=== PATIENT | male | born 1990 | race Caucasian/White ===

== ENCOUNTER → 2017-10-27 16:36 | Outpatient (CLI) | payer BC, MEDICARE, SELFPAY ==
[2017-10-27 17:00] LABS: Basophils # 0.1 K/mm3 (0-0.2); Basophils % 0.6 % (0.1-2.0); Eosinophils # 0.6 K/mm3 (0.0-0.4); Hemoglobin 16.9 g/dL (14.1-18.0); Lymphocytes # 2.7 K/mm3 (0.7-4.5); Lymphocytes % 28.3 K/mm3 (10-50); Mean Corpuscular HGB Conc 31.3 g/dL (31.8-35.4); Mean Corpuscular Hemoglobin 28.6 pg (27.0-31.2); Mean Corpuscular Volume 91.4 fl (80-94); Mean Platelet Volume 7.9 fl (7.4-10.4); Monocytes # 0.5 K/mm3 (0.1-1.0); Monocytes % 5.6 % (1.7-9.3); Neutrophils # 5.7 K/mm3 (1.8-7.8); Neutrophils % 59.5 % (37.0-80.0); Platelet Count 213 K/mm3 (142-424); Red Blood Count 5.91 M/mm3 (4.60-6.20); Red Cell Distribution Width 12.7 % (11.5-17.5); White Blood Count 9.6 K/mm3 (4.8-10.8)
== END ==
PROVIDERS: Visit Provider Otolaryngology
DX: Z01.818 Encounter for other preprocedural examination (principal); H91.93 Unspecified hearing loss, bilateral; H65.05 Acute serous otitis media, recurrent, left ear; H61.21 Impacted cerumen, right ear; H65.21 Chronic serous otitis media, right ear
CPT/HCPCS: 36415; 85025; 93005

== ENCOUNTER 2018-07-14 08:51 | Outpatient (RCR) | payer BC, MEDICARE, SELFPAY ==
--- NOTE | 2018-07-14 11:47 | HMH.PTOPEV ---
PT Outpatient Evaluation Rehab PT Outpatient Evaluation Start: 07/14/18 10:15 Freq: Status: Active Protocol: Document 07/14/18 10:15 MITCHELLX (Rec: 07/14/18 11:46 PDESEROUX [id number]) Electronically Signed By Santiago Rod, KEHINDE 07/14/18 10:15 Outpatient Therapy Subjective History Subjective History Pt. is a 27 year old male who presents to outpatient PT with complaints of L anterior knee pain and patella dislocations. Pt. reports he first dislocated his patella in 2012 while stepping up onto his bike. Pt. reports his most recent dislocation was at work a week and a half ago while he was walking. Pt. reports this has happened 2-3 times before with just walking. Pt. states his job gave him a knee brace to wear which has helped, but keeps sliding inferiorly beacuse it is too big. PMH includes L ankle surgical reconstruction. Pt. denies taking any current medications . Chief Complaint Pain Other Symptom Type Ache Symptoms Relieved By Rest/Positioning Brace/Support Symptoms Aggravated By Physical Activity Twisting Walking Prior Functional Limitations None Current Functional Limitations Lifting Squatting Recreation Activity Walking Stairs Symptom Description Intermittent Activity Dependent Level of pain today (0-10) 1 Pain scale - at its best (0-10) 0 Pain scale - at its worst (0-10) 3 Hip/Knee Eval Gait Observation General Gait Pattern Observation No Deviations/Normal Assistive Device Assistive Devices None / NA Palpation Tenderness left Knee Palpation Finding Tenderness Knee Palpation Overall Comment medial and posterior/medial jt . line grade 2 +TTP Hip Palpation Findings None/Normal right Knee Palpation Finding None/Normal Hip Palpation Findings None/Normal MMT bilateral Hip Flexion Streng
== END 2018-08-11 09:58 | disposition home or self-care (01) ==
LOC: PT.CARL 08:51
PROVIDERS: Visit Provider Internal Medicine Adolescent Medicine
DX: S83.005D Unspecified dislocation of left patella, subsequent encounter (principal)
CPT/HCPCS: 97110; 97163

== ENCOUNTER 2020-03-17 12:26 | Emergency (ER) | payer BC, SELFPAY ==
[2020-03-17 12:39] VITALS: BP 143/114; PULSE 95; RESP 18; TEMP 36.7; O2SAT 98; BMI 33.0
--- NOTE | 2020-03-17 12:47 | XR_ITS ---
PROCEDURE: XR ANKLE LT 2V CLINICAL INDICATION: pain COMPARISON: CR ANKL3 ANKLE-LT-3 VIEWS from 03/30/2016 FINDINGS: The surgical metallic clips are again seen projecting over the distal fibula and tibia. Minor posttraumatic deformity of the distal fibula is noted however the ankle mortise is normal. There is minor focal ossification of the intraosseous ligament at the level of the old fracture. IMPRESSION: No acute findings. Dictated by: Dr. Tommie Anderson MD 03/17/2020 14:01 Dr. Tommie Anderson MD in [place] 03/17/2020 14:01
--- NOTE | 2020-03-17 12:47 | XR_ITS ---
PROCEDURE: XR FOOT LT MIN 3V CLINICAL INDICATION: pain COMPARISON: CR XR ANKLE LT 2V from 03/17/2020 FINDINGS: No fracture or dislocation. No lytic or blastic change. There is normal mineralization. The joint spaces are well-preserved. No significant degenerative/arthritic changes. No erosive changes evident. There is no evidence of acute or old fracture involving the 5th metatarsal. Plantar arch is normal. There is a prominent spur of the calcaneus at the insertion of the Achilles tendon. Other findings:Surgical clips are seen projecting over the distal tibia and fibula. IMPRESSION: No acute findings. Dictated by: Dr. Tommie Anderson MD 03/17/2020 13:58 Dr. Tommie Anderson MD in [place] 03/17/2020 13:58
--- NOTE | 2020-03-17 13:13 | HMH.EDUTC ---
[facility] [place]ression: Right ankle pain Qualifiers: Chronicity: unspecified Qualified Code(s): M25.571 - Pain in right ankle and joints of right foot Disposition: Home, Self-Care Condition on Discharge: Good Instructions: DI for Foot Pain Additional Instructions: Rest the extremity, apply ice for 15 minutes as tolerated three or four times per day, Wear the estrella wrap for compression, Elevate the extremity as tolerated while you are resting. Follow up with Dr. Adamson. I put in a referral but you need to call her office and schedule an appointment. Follow up with your regular doctor. Don't start the oral steroids until tomorrow, since you had the shot here today. GO TO THE ER FOR ANY WORSENING SYMPTOMS Prescriptions: methylPREDNISolone [Medrol] 4 mg PO DIRECTED 6 Days #21 tab.ds.pk Transmission Status: Received by [facility] Referrals: Jhonny Turner MD [Primary Care Provider] - Clari Adamson DPM [Staff Physician] - Forms: Work/School Release Time of Disposition: 13:21 Medical Decision Making - Medical Records Medical records reviewed: No: I reviewed the patient's medical records. - Fredi Inquiry Pt receiving controlled substance: No Vital Signs: 03/17/20 12:39 03/17/20 13:29 Temperature 98.1 F 98.1 F Temperature Source Oral Oral Pulse Rate 95 H Pulse Rate [Radial] 95 H Respiratory Rate 18 18 Blood Pressure 143/114 H Blood Pressure [Right Arm] 143/114 H Blood Pressure Mean [Right Arm] 123 Blood Pressure Source Automatic Cuff Blood Pressure Source [Right Arm] Automatic Cuff Blood Pressure Position Sitting Blood Pressure Position [Right Arm] Sitting 02 Sat by Pulse Oximetry 98 Oxygen Delivery Method Room Air Room Air Orders (Tests/Meds): ED MEDICATIONS Discontinued Medications Generic Name Dose Route Start Last Admin Trade Name Freq PRN Reason Stop Dose Admin Ketorolac Tromethamine 60 mg 03/17/20 13:10 03/17/20 13:18 Ketorolac 60mg/2ml Vial IM 03/17/20 13:11 60 mg ONCE ONE Administration Methylprednisolone Sodium Succinate 125 mg 03/17/20 13:10 03/17/20 13:17 Methylprednisolone Sod Succ 125mg Vial IM 03/17/20 13:11 125 mg ONCE ONE Administration - Radiology Data #1 Image(s): Ankle Image Reviewed: Yes I reviewed the patient's radiology image, Yes I have reviewed radiologist's interpretation Preliminary Findings: No Fracture Seen [facility] [place] - General Stated complaint: lt foot pain no ao Time Seen by Provider: 03/17/20 12:45 Mode of Arrival: Ambulatory Source of Information: Patient Limitations: No Limitations Description of Symptoms (Recalled from Triage Doc. by RN): left foot pain, no injury HEENT Symptoms (Recalled from RN notes): No Resp Symptoms (Recalled from RN notes): No Skin Symptoms (Recalled from RN notes): No MS Symptoms (Recalled from RN notes): Yes Functional Status (Recalled from RN notes): wnl - History of Present Illness Provider Complaint: He complains of left foot and ankle pain. His pain began several days ago. He denies any injury. He states that he has flare ups like this ever so often. He has to walk and stand a lot on his foot at his work. - Related Data Previous Rx's Medication Instructions Recorded methylPREDNISolone [Medrol] 4 mg PO DIRECTED 6 Days #21 03/17/20 tab.ds.pk Allergies Allergy/AdvReac Type Severity Reaction Status Date / Time ampicillin [AMPICILLIN] Allergy Unknown I-HIVES Verified 11/10/17 08:20 Penicillins [PENICILLINS] Allergy Unknown I-HIVES Verified 11/10/17 08:20 poliomyelitis vaccine,killed Allergy Unknown INCREASED Verified 11/10/17 08:20 [POLIOMYELITIS FEVER LED VACCINE,KILLED] TO SEIZURES - Worker's Comp Is this a Worker's Comp case?: No [facility] History - Hepatitis A Screen Drug use history?: No High risk sexual behaviors?: No History of sexually transmitted infection?: No 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
[2020-03-17 13:29] VITALS: BP 143/114; PULSE 95; RESP 18; TEMP 36.7; O2SAT 98
== END 2020-03-17 13:37 | disposition home or self-care (01) ==
PROVIDERS: Emergency Provider Nurse Practitioner Family; PCP Internal Medicine Adolescent Medicine
DX: M25.571 Pain in right ankle and joints of right foot (principal); Z88.0 Allergy status to penicillin
CPT/HCPCS: 73600; 73630; 96372; 99202

== ENCOUNTER 2021-02-03 12:44 | Emergency (ER) | payer BC, SELFPAY ==
[2021-02-03 14:05] VITALS: BP 140/91; PULSE 89; RESP 18; TEMP 36.6; O2SAT 99; BMI 31.6
[2021-02-03 14:13] VITALS: BP 140/91; PULSE 89; RESP 18; TEMP 36.6
[2021-02-03 14:21] LABS: UTC Strep Screen (Rapid) Negative (Negative)
--- NOTE | 2021-02-03 14:28 | HMH.EDUTC ---
[facility] [place] Clinical Impression: Sinusitis, Exposure to COVID-19 virus Disposition: Home, Self-Care Condition on Discharge: Good Instructions: DI for Sinusitis, DI for COVID-19 (Suspected or Confirmed ), Preventing the Spread of Coronavirus Discharge Instructions Additional Instructions: Drink plenty of fluids. Take tylenol or ibuprofen for pain or fever. Take the medications as directed. Follow up with your regular doctor. GO TO THE ER FOR ANY WORSENING SYMPTOMS Quarantine until you know the results of your covid-19 test. If it is positive, the health department should call you and give you further instructions about your length of Quarantine and other things. Notify your school or workplace of your results and follow their instructions regarding return to work/school. Prescriptions: Benzonatate [Tessalon Perle 100mg Cap] 100 mg PO TIDP PRN #30 cap PRN Reason: Cough Transmission Status: Received by [facility] Azithromycin [Z-Vu 250mg Tab*] 250 mg PO UD DOSE PK #6 tab Transmission Status: Received by [facility] Referrals: Jhonny Turner MD [Primary Care Provider] - Forms: Work/School Release Time of Disposition: 14:38 Medical Decision Making - Medical Records Medical records reviewed: No: I reviewed the patient's medical records. - Fredi Inquiry Pt receiving controlled substance: No Vital Signs: 02/03/21 14:05 02/03/21 14:13 Temperature 97.9 F 97.9 F Temperature Source Oral Pulse Rate 89 Pulse Rate [Left] 89 Respiratory Rate 18 18 Blood Pressure 140/91 H Blood Pressure [Right Arm] 140/91 H Blood Pressure Mean [Right Arm] 107 02 Sat by Pulse Oximetry 99 - Lab Data Lab results reviewed: Yes: I reviewed the patient's lab results. Lab Results 02/03/21 14:14: Strep Scn Rapid Clinic Negative Orders (Tests/Meds): ORDERS Category Date Time Status Strep Screen Confirmation Stat Micro 02/03/21 14:14 [place] [facility] [place] - General Stated complaint: sore throat, sinus congestion Time Seen by Provider: 02/03/21 14:28 Mode of Arrival: Ambulatory Source of Information: Patient Limitations: No Limitations Description of Symptoms (Recalled from Triage Doc. by RN): pt c/o sore throat, sinus pressure, and WALSH x3 days. HEENT Symptoms (Recalled from RN notes): Yes (sore throat, sinus pressure and WALSH) Resp Symptoms (Recalled from RN notes): No Skin Symptoms (Recalled from RN notes): No MS Symptoms (Recalled from RN notes): No Functional Status (Recalled from RN notes): na - History of Present Illness Provider Complaint: He states that for the past 2 days he has had sinus congestion and a cough. He has been vaccinated to covid with a 2 shot regimen. He is unsure which vaccine he took. He denies any fever or chills. - Related Data Previous Rx's Medication Instructions Recorded methylPREDNISolone [Medrol] 4 mg PO DIRECTED 6 Days #21 03/17/20 tab.ds.pk Azithromycin [Z-Vu 250mg Tab*] 250 mg PO UD DOSE PK #6 tab 02/03/21 Benzonatate [Tessalon Perle 100mg 100 mg PO TIDP PRN #30 cap 02/03/21 Cap] Allergies Allergy/AdvReac Type Severity Reaction Status Date / Time ampicillin [AMPICILLIN] Allergy Unknown I-HIVES Verified 11/10/17 08:20 Penicillins [PENICILLINS] Allergy Unknown I-HIVES Verified 11/10/17 08:20 poliomyelitis vaccine,killed Allergy Unknown INCREASED Verified 11/10/17 08:20 [POLIOMYELITIS FEVER LED VACCINE,KILLED] TO SEIZURES - Worker's Comp Is this a Worker's Comp case?: No [facility] History - Hepatitis A Screen Drug use history?: No High risk sexual behaviors?: No History of sexually transmitted infection?: No 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r?: No Do you have indoor plumbing?: Yes Do you have electricity?: Yes Attestation statement:: This patient has been screened for Hepatitis A risk factors. I have reviewed the patient's past medical history: Yes Medical History: Denies:: Cancer,
== END 2021-02-03 14:42 | disposition home or self-care (01) ==
PROVIDERS: Emergency Provider Nurse Practitioner Family; PCP Internal Medicine Adolescent Medicine
DX: J01.90 Acute sinusitis, unspecified (principal); Z20.822 Contact with and (suspected) exposure to COVID-19; Z88.0 Allergy status to penicillin; Z88.1 Allergy status to other antibiotic agents
CPT/HCPCS: 87880; 99203; G0463; U0003

== ENCOUNTER 2021-11-11 11:40 | Emergency (ER) | payer BC, SELFPAY ==
[2021-11-11 12:00] VITALS: BP 147/76; PULSE 110; RESP 18; TEMP 36.9; O2SAT 96; BMI 35.6
--- NOTE | 2021-11-11 12:19 | HMH.EDUTC ---
[facility] [place]position Clinical Impression: Exposure to COVID-19 virus, Viral syndrome Disposition: Home, Self-Care Condition on Discharge: Good Instructions: DI for Viral Syndrome, DI for COVID-19 (Suspected or Confirmed ), Preventing the Spread of Coronavirus Discharge Instructions Additional Instructions: *Monitor Temp, Over the counter Motrin or Tylenol as directed/as needed Tylenol every 4 hours and Motrin every 6 hours (as long as your family doctor has told you that you can take it) for fever or pain. and straight to ER if unable to lower temp less than 101.0 after medication given *Warm salt water gargles may help to soothe the throat *Throat Lozenges *Warm fluids like tea with honey may help to soothe the throat *Sleep elevated *Humidifier/Vaporizer Follow up IMMEDIATELY for new or worsening symptoms or no Noticeable improvement over the next 48-72 hours. 911 for difficulty breathing or swallowing You were tested for today for COVID19 your test result should be back in the next 24-48 hours, you may check your results on the [facility] My Health Portal Make sure to take your Vitamins Vit. C Vit D and Zinc if you can take them Prescriptions: Brompheniramine/Pseudoephed/Dm [Bromfed Dm Cough Syrup] 10 ml PO Q4-6H PRN #200 ml PRN Reason: Cough Transmission Status: Pending to [facility] Referrals: Jhonny Turner MD [Primary Care Provider] - As needed Forms: Work/School Release Time of Disposition: 12:23 Medical Decision Making - Fredi Inquiry Pt receiving controlled substance: No Fredi was queried for this patient: No Vital Signs: 11/11/21 12:00 Temperature 98.4 F Temperature Source Oral Pulse Rate [Left Brachial] 110 H Respiratory Rate 18 Blood Pressure [Left Arm] 147/76 H Blood Pressure Mean [Left Arm] 99 Blood Pressure Source [Left Arm] Automatic Cuff Blood Pressure Position [Left Arm] Sitting 02 Sat by Pulse Oximetry 96 Oxygen Delivery Method Room Air Orders (Tests/Meds): ORDERS Category Date Time Status Covid-19 Nasal PCR ([facility]) Routine Lab 11/11/21 11:55 Received [facility] [place] HPI - General Stated complaint: sore throat, bodyaches, chills Time Seen by Provider: 11/11/21 12:20 Mode of Arrival: Ambulatory Source of Information: Patient Limitations: No Limitations Description of Symptoms (Recalled from Triage Doc. by RN): PATIENT C/O SORE THROAT AND DECREASED ENERGY SINCE TUESDAY. HE REPORTS HIS CHILD AND TESTED POSITIVE FOR COVID ON TUESDAY HEENT Symptoms (Recalled from RN notes): Yes Resp Symptoms (Recalled from RN notes): No Skin Symptoms (Recalled from RN notes): No MS Symptoms (Recalled from RN notes): No Functional Status (Recalled from RN notes): WNL - History of Present Illness Provider Complaint: Patient states that his and daughter tested positive for COVID on Tuesday States that he has been feeling bad since Tuesday and took several at home COVID tests and they was negative but this morning it showed positive so he came in to get tested here - Related Data Previous Rx's Medication Instructions Recorded methylPREDNISolone [Medrol] 4 mg PO DIRECTED 6 Days #21 03/17/20 tab.ds.pk Azithromycin [Z-Vu 250mg Tab*] 250 mg PO UD DOSE PK #6 tab 02/03/21 Benzonatate [Tessalon Perle 100mg 100 mg PO TIDP PRN #30 cap 02/03/21 Cap] Brompheniramine/Pseudoephed/Dm 10 ml PO Q4-6H PRN #200 ml 11/11/21 [Bromfed Dm Cough Syrup] Allergies Allergy/AdvReac Type Severity Reaction Status Date / Time ampicillin [AMPICILLIN] Allergy Unknown I-HIVES Verified 11/10/17 08:20 Penicillins [PENICILLINS] Allergy Unknown I-HIVES Verified 11/10/17 08:20 poliomyelitis vaccine,killed Allergy Unknown INCREASED Verified 11/10/17 08:20 [POLIOMYELITIS FEVER LED VACCINE,KILLED] TO SEIZURES - Worker's Comp Is this a Worker's Comp case?: No H History - Hepatitis A Screen Attestation statement:: This patient has been screened for Hepatitis A risk factors. I
[2021-11-11 12:22] VITALS: BP 147/76; PULSE 110; RESP 18; TEMP 36.9; O2SAT 96
== END 2021-11-11 12:25 | disposition home or self-care (01) ==
PROVIDERS: Emergency Provider Nurse Practitioner; PCP Internal Medicine Adolescent Medicine
DX: U07.1 COVID-19 (principal)
CPT/HCPCS: 99212; C9803; G0463; U0003; U0005

== ENCOUNTER 2022-03-01 09:37 | Emergency (ER) | payer BC, SELFPAY ==
--- NOTE | 2022-03-01 10:27 | EXP.UTC ---
Discharge Plan Disposition Patient Disposition: Home, Self-Care Condition: Good Prescriptions Prescriptions: New methylprednisolone 4 mg Tablets,Dose Pack 4 mg PO DIRECTED Qty: 21 0RF No Action methylprednisolone 4 MG tablets,dose pack 4 mg PO DIRECTED 6 Days Qty: 21 0RF azithromycin 250 MG tablet 250 mg PO UD DOSE PK Qty: 6 0RF Rx Instructions: Take two (2) tablets today, then one (1) tablet days #2 thru #5 benzonatate 100 MG capsule 100 mg PO TIDP PRN (Reason: Cough) Qty: 30 0RF [id number]-[id number] 118 ML syrup 10 ml PO Q4-6H PRN (Reason: Cough) Qty: 200 0RF Referrals Follow up/Referrals: Jhonny Turner MD [Primary Care Provider] - See instructions Activity Restrictions/Add. Instructions Additional Instructions/Restrictions: Rest the extremity, apply ice for 15 minutes as tolerated three or four times per day, Wear the estrella wrap for compression, Elevate the extremity as tolerated while you are resting. Take ibuprofen for pain. I sent in a prescription to your pharmacy. Follow up with Dr. Adamson (orthopedics). I put in a referral but you need to call her office and schedule an appointment. Follow up with your regular doctor. GO TO THE ER FOR ANY WORSENING SYMPTOMS Clinical Impressions Clinical Impression: Right ankle pain Stand Alone Forms Stand Alone Forms: Work/School Release Instructions Patient Instructions: DI for Ankle Pain, Methylprednisolone Injection, Ketorolac Injection Discharge ED Provider: Phil Hall [facility] General Stated complaint: pain in Rt ankle Time Seen by Provider: 03/01/22 10:26 History of Present Illness Provider Complaint: He is here with c/o right ankle pain. He states that he had an injury in the ankle about 5 years ago. Since then, he has flare ups of arthritis pain in the ankle at times. That is what he says is going on now. This episode of pain started 3 days ago. He denies any other joint pain. Related Data Previous Rx's Medication Instructions Recorded methylprednisolone 4 mg tablets in 4 mg PO DIRECTED 6 days ##21 03/17/20 a dose pack azithromycin 250 mg tablet 250 mg PO UD DOSE PK #6 tabs 02/03/21 benzonatate 100 mg capsule 100 mg PO TIDP PRN Cough #30 caps 02/03/21 [id number]-VP 10 ml PO Q4-6H PRN Cough #200 mL 11/11/21 2 mg-30 mg-10 mg/5 mL oral syrup methylprednisolone 4 mg tablets in 4 mg PO DIRECTED #21 tabs 03/01/22 a dose pack Allergies Allergy/AdvReac Type Severity Reaction Status Date / Time ampicillin [AMPICILLIN] Allergy Unknown I-HIVES Verified 11/10/17 08:20 Penicillins [PENICILLINS] Allergy Unknown I-HIVES Verified 11/10/17 08:20 poliomyelitis vaccine,killed Allergy Unknown INCREASED Verified 11/10/17 08:20 [POLIOMYELITIS FEVER LED VACCINE,KILLED] TO SEIZURES [facility] Medical History Seizure disorder Surgical History History of ankle surgery Hx of tympanostomy tubes Social History Smoking Status: Never smoker alcohol intake: never substance use type: denies use current occupational status: employed Travel in the last 8 weeks: None household members: spouse housing: house current occupation: [employer] caffeine: Yes ROS Obtained: Yes All systems reviewed & no additional complaints except as documented Constitutional Constitutional: Denies chills and Denies fever(s) Integumentary/Breasts Skin/Breast: Denies redness, Denies rash and Denies wounds Neurologic Neurologic: Denies paresthesias Physical Exam General General appearance: alert and in no apparent distress Head Head exam: atraumatic, normocephalic and normal inspection Eye Eye exam: Present normal appearance, PERRL and EOMI ENT ENT exam: Present normal exam, normal oropharynx, mucous membr
[2022-03-01 10:30] VITALS: BP 158/88; PULSE 73; RESP 18; TEMP 37.2; O2SAT 99; BMI 30.3
[2022-03-01 11:00] VITALS: BP 158/88; PULSE 73; RESP 18; TEMP 37.2; O2SAT 99
== END 2022-03-01 11:04 | disposition home or self-care (01) ==
PROVIDERS: Emergency Provider Nurse Practitioner Family; PCP Internal Medicine Adolescent Medicine
DX: M19.071 Primary osteoarthritis, right ankle and foot (principal); R05.9 Cough, unspecified; G40.909 Epilepsy, unspecified, not intractable, without status epilepticus; Z79.52 Long term (current) use of systemic steroids; Z79.899 Other long term (current) drug therapy; Z88.0 Allergy status to penicillin; Z88.1 Allergy status to other antibiotic agents; Z88.3 Allergy status to other anti-infective agents; Z88.7 Allergy status to serum and vaccine
CPT/HCPCS: 96372; 99213; G0463

== ENCOUNTER 2022-04-18 08:59 | Emergency (ER) | payer BC, SELFPAY ==
--- NOTE | 2022-04-18 10:05 | EXP.UTC ---
Discharge Plan Disposition Patient Disposition: Home, Self-Care Condition: Good Prescriptions Prescriptions: New prednisone 10 mg tablet 10 mg PO DIRECTED 9 Days Qty: 21 0RF Rx Instructions: Take 4 tablets daily for 3 days, then take 2 tablets daily for 3 days, then take 1 tablet daily for 3 days, then stop. Discontinued methylprednisolone 4 MG tablets,dose pack 4 mg PO DIRECTED 6 Days Qty: 21 0RF azithromycin 250 MG tablet 250 mg PO UD DOSE PK Qty: 6 0RF Rx Instructions: Take two (2) tablets today, then one (1) tablet days #2 thru #5 benzonatate 100 MG capsule 100 mg PO TIDP PRN (Reason: Cough) Qty: 30 0RF methylprednisolone 4 mg Tablets,Dose Pack 4 mg PO DIRECTED Qty: 21 0RF ozpbpsdjatycsdj-ruuendxtl-DA 118 ML syrup 10 ml PO Q4-6H PRN (Reason: Cough) Qty: 200 0RF Referrals Follow up/Referrals: Jhonny Turner MD [Primary Care Provider] - See instructions Activity Restrictions/Add. Instructions Additional Instructions/Restrictions: Rest the extremity, Elevate the extremity as tolerated while you are resting. Follow up with Dr. Adamson (podiatry) or your own orthopedist. I put in a referral to Dr. Adamson, but you need to call her office and schedule an appointment. Follow up with your regular doctor. GO TO THE ER FOR ANY WORSENING SYMPTOMS Clinical Impressions Clinical Impression: Ankle pain, left Discharge ED Provider: Phil Hall [facility] General Stated complaint: Surgery 10 years ago, left ankle pain Time Seen by Provider: 04/18/22 10:05 History of Present Illness Provider Complaint: He c/o worsening left ankle pain for the past 2 days. He denies any recent injury. When he was young he hurt the ankle and had to have surgery on it. Since then, he has periodic flare ups of pain in the ankle that is attributed to arthritis. Related Data Previous Rx's Medication Instructions Recorded prednisone 10 mg tablet 10 mg PO DIRECTED 9 days #21 04/18/22 tabs Allergies Allergy/AdvReac Type Severity Reaction Status Date / Time ampicillin [AMPICILLIN] Allergy Unknown I-HIVES Verified 04/18/22 10:18 Penicillins [PENICILLINS] Allergy Unknown I-HIVES Verified 04/18/22 10:18 poliomyelitis vaccine,killed Allergy Unknown INCREASED Verified 04/18/22 10:18 [POLIOMYELITIS FEVER LED VACCINE,KILLED] TO SEIZURES [facility] Medical History Seizure disorder Surgical History History of ankle surgery Hx of tympanostomy tubes Social History Smoking Status: Never smoker alcohol intake: never substance use type: denies use current occupational status: employed Travel in the last 8 weeks: None household members: spouse housing: house current occupation: [employer] caffeine: Yes ROS Obtained: Yes All systems reviewed & no additional complaints except as documented Constitutional Constitutional: Denies chills and Denies fever(s) Integumentary/Breasts Skin/Breast: Denies redness, Denies rash and Denies wounds Neurologic Neurologic: Denies paresthesias Physical Exam General General appearance: alert and in no apparent distress Head Head exam: atraumatic, normocephalic and normal inspection Eye Eye exam: Present normal appearance, PERRL and EOMI ENT ENT exam: Present normal exam, normal oropharynx, mucous membranes moist, TM's normal bilaterally and normal external ear exam Neck Neck exam: Present normal inspection, full ROM and trachea midline; Absent meningismus or lymphadenopathy Chest Chest inspection: Present normal inspection and symmetric chest wall rise; Absent tenderness Respiratory Respiratory exam: Present normal lung sounds bilaterally; Absent respiratory distress Cardiovascular Cardiovascular exam: Present regular rate and normal rhythm; A
[2022-04-18 10:14] VITALS: BP 146/96; PULSE 83; RESP 17; TEMP 36.9; O2SAT 100; BMI 31.6
[2022-04-18 11:06] VITALS: BP 146/96; PULSE 83; RESP 17; TEMP 36.9
== END 2022-04-18 11:09 | disposition home or self-care (01) ==
PROVIDERS: Emergency Provider Nurse Practitioner Family; PCP Internal Medicine Adolescent Medicine
DX: M25.572 Pain in left ankle and joints of left foot (principal); G40.909 Epilepsy, unspecified, not intractable, without status epilepticus; R05.9 Cough, unspecified; Z79.52 Long term (current) use of systemic steroids; Z88.0 Allergy status to penicillin; Z88.1 Allergy status to other antibiotic agents; Z88.3 Allergy status to other anti-infective agents; Z88.8 Allergy status to other drugs, medicaments and biological substances
CPT/HCPCS: 96372; 99213; G0463

== ENCOUNTER 2022-09-23 15:50 | Emergency (ER) | payer BC, SELFPAY ==
[2022-09-23 16:15] VITALS: PULSE 118; RESP 18; TEMP 36.8; O2SAT 96; BMI 33.0
--- NOTE | 2022-09-23 16:39 | EXP.UTC ---
Discharge Plan Disposition Patient Disposition: Home, Self-Care Condition: Good Prescriptions Prescriptions: New methylprednisolone 4 mg Tablets,Dose Pack 4 mg PO DIRECTED Qty: 21 0RF Referrals Follow up/Referrals: Provider,Referral, [Primary Care Provider] - See instructions Clari Adamson DPM [Staff Physician] - See instructions Activity Restrictions/Add. Instructions Additional Instructions/Restrictions: Rest the extremity, Elevate the extremity as tolerated while you are resting. Follow up with Dr. Adamson (podiatry). I put in a referral but you need to call her office and schedule an appointment. Follow up with your regular doctor. GO TO THE ER FOR ANY WORSENING SYMPTOMS Clinical Impressions Clinical Impression: Left foot pain Instructions Patient Instructions: Gout, DI for Gout Discharge ED Provider: Phil Hall [facility] [place] General Stated complaint: left ankle swollen&Pain Mode of Arrival: Ambulatory Source of Information: Patient Limitations: No Limitations Time Seen by Provider: 09/23/22 16:30 Description of Symptoms (Recalled from Triage Doc. by RN): Left ankle pain HEENT Symptoms (Recalled from RN notes): No Resp Symptoms (Recalled from RN notes): No Skin Symptoms (Recalled from RN notes): No MS Symptoms (Recalled from RN notes): Yes Functional Status (Recalled from RN notes): n/a History of Present Illness Provider Complaint: He states that he is having a gout flare up in his left foot. Related Data Previous Rx's Medication Instructions Recorded methylprednisolone 4 mg tablets in 4 mg PO DIRECTED #21 tabs 09/23/22 a dose pack Allergies Allergy/AdvReac Type Severity Reaction Status Date / Time ampicillin [AMPICILLIN] Allergy Unknown I-HIVES Verified 09/23/22 16:30 Penicillins [PENICILLINS] Allergy Unknown I-HIVES Verified 09/23/22 16:30 poliomyelitis vaccine,killed Allergy Unknown INCREASED Verified 09/23/22 16:30 [POLIOMYELITIS FEVER LED VACCINE,KILLED] TO SEIZURES Worker's Comp Is this a Worker's Comp case?: No [facility] Disclaimer: The information contained in this section may have been updated after the patient was seen, as this information can be updated by other users. Medical History Seizure disorder Surgical History History of ankle surgery Hx of tympanostomy tubes Social History Smoking Status: Never smoker alcohol intake: never substance use type: denies use current occupational status: employed Travel in the last 8 weeks: None household members: spouse housing: house current occupation: [employer] caffeine: Yes ROS Obtained: Yes All systems reviewed & no additional complaints except as documented Constitutional Constitutional: Denies chills and Denies fever(s) Eyes Eyes: Denies eye discharge ENT Ears, Nose, Mouth, and Throat: Denies dizziness, Denies otalgia and Denies sore throat Cardiovascular Cardiovascular: Denies chest pain Respiratory Respiratory: Denies shortness of breath, Denies chest congestion, Denies cough, Denies stridor and Denies wheezing Gastrointestinal Gastrointestingal: Denies nausea or vomiting Musculoskeletal Musculoskeletal: Reports system reviewed and no additional complaints, except as documented and Denies arthralgias Integumentary/Breasts Skin/Breast: Denies rash Neurologic Neurologic: Denies dizziness and Denies paresthesias Allergic/Immunologic Allergic/Immunologic: Denies wheezing Physical Exam General General appearance: alert and in no apparent distress Head Head exam: atraumatic, normocephalic and normal inspection Eye Eye exam: Present normal appearance, PERRL and EOMI ENT ENT exam: Present normal exam, normal oropharynx, mucous membranes moist, TM's normal bilaterally and normal external ear exam Neck Neck
[2022-09-23 19:27] VITALS: BP 0/0; PULSE 118; RESP 18; TEMP 36.8; O2SAT 96
== END 2022-09-23 19:26 | disposition home or self-care (01) ==
PROVIDERS: Emergency Provider Nurse Practitioner Family
DX: M79.672 Pain in left foot (principal)
CPT/HCPCS: 96372; 99212; 99214; G0463

== ENCOUNTER 2022-11-07 14:45 | Emergency (ER) | payer BC, SELFPAY ==
[2022-11-07 15:00] VITALS: BP 148/87; PULSE 68; RESP 18; TEMP 36.7; O2SAT 98; BMI 34.0
--- NOTE | 2022-11-07 15:03 | XR_ITS ---
PROCEDURE INFORMATION: Exam: XR Left Ankle Exam date and time: 11/07/2022 3:17 PM Age: 31 years old Clinical indication: Prior surgery; Surgery date: 6+ months; Surgery type: Left ankle FX repair about 6 years ago. Patient HX: Patient twisted left ankle 2 days ago, increasing pain. ; Additional info: Pain and swelling TECHNIQUE: Imaging protocol: Radiologic exam of the left ankle. Views: 3 or more views. COMPARISON: CR XR ANKLE LT 2V 03/17/2020 12:50 PM FINDINGS: Bones/joints: Status post ankle syndesmosis repair with distal tibial and fibular osteotomies and small metallic fixation buttons, unchanged in alignment compared with 03/17/2020. Chronic degenerative spurs of the tips of medial and lateral malleoli and ovoid ossicle at the tip of the medial malleolus. Chronic cortical-periosteal thickening of the distal tibia along the syndesmosis. Prominent Achilles calcaneal spur and some ovoid calcification in the Achilles tendon insertion.No acute fracture or dislocation. Talus remains intact and normally aligned. Small ankle joint effusion. Mild arthritis in the midfoot with navicular spurs. Soft tissues: Lateral soft tissue swelling at the ankle. IMPRESSION: 1. No acute fracture or dislocation. 2. Surgical hardware post ankle syndesmosis repair is unchanged in alignment compared with 03/17/2020. 3. Degenerative changes of medial and lateral malleoli. 4. Small ankle joint effusion and lateral soft tissue swelling, correlate for lateral ligament sprain or contusion. 5. Calcific Achilles tendinopathy and calcaneal spur.
--- NOTE | 2022-11-07 15:31 | EXP.UTC ---
Discharge Plan Disposition Patient Disposition: Home, Self-Care Condition: Good Prescriptions Prescriptions: New ibuprofen 600 mg tablet 600 mg PO Q8H PRN (Reason: pain) Qty: 10 0RF No Action methylprednisolone 4 mg Tablets,Dose Pack 4 mg PO DIRECTED Qty: 21 0RF Referrals Follow up/Referrals: Jhonny Turner MD [Primary Care Provider] - See instructions Activity Restrictions/Add. Instructions Additional Instructions/Restrictions: Weightbearing as tolerated rest Ice with cold pack for 20 minutes remove may repeat for comfort every hour Cruz wrap for support and swelling no less in the shower. Be sure not too tight but not to lose either Elevate with ankle above your heart as much as possible to help reduce swelling and therefore pain Ibuprofen every 6 hours as needed for pain or inflammation. If needs something more you can take Tylenol every 4 hours as needed as long as her primary care has told he was okayed for you to take both. If improving any do not need to follow-up you can bring begin exercising 2-3 weeks after injury. Follow-up immediately if new or worsening symptoms or no noticeable improvement over the next 3-5 days. call ortho Clinical Impressions Clinical Impression: Ankle pain, left Instructions Patient Instructions: DI for Ankle Sprain Discharge ED Provider: Baldo ([facility])Carlos [facility] [place] HPI General Stated complaint: LT ankle pain Fall@home 11/01 Mode of Arrival: Ambulatory Source of Information: Patient Limitations: No Limitations Time Seen by Provider: 11/07/22 15:31 Description of Symptoms (Recalled from Triage Doc. by RN): PATIENT C/O LEFT ANKLE PAIN AND SWELLING X 4-5 DAYS HEENT Symptoms (Recalled from RN notes): No Resp Symptoms (Recalled from RN notes): No Skin Symptoms (Recalled from RN notes): No MS Symptoms (Recalled from RN notes): Yes Functional Status (Recalled from RN notes): WNL History of Present Illness Provider Complaint: 31 yr old male presents for left ankle pain. pt states 4-5 days ago he twisted his ankle and its not getting any better. pt states it hurts when he walks. pt states hx of ankle surgery and sometimes he receives a steroid shot and that helps. Related Data Previous Rx's Medication Instructions Recorded methylprednisolone 4 mg tablets in 4 mg PO DIRECTED #21 tabs 09/23/22 a dose pack ibuprofen 600 mg tablet 600 mg PO Q8H PRN pain #10 tabs 11/07/22 Allergies Allergy/AdvReac Type Severity Reaction Status Date / Time ampicillin [AMPICILLIN] Allergy Unknown I-HIVES Verified 09/23/22 16:30 Penicillins [PENICILLINS] Allergy Unknown I-HIVES Verified 09/23/22 16:30 poliomyelitis vaccine,killed Allergy Unknown INCREASED Verified 09/23/22 16:30 [POLIOMYELITIS FEVER LED VACCINE,KILLED] TO SEIZURES Worker's Comp Is this a Worker's Comp case?: No [facility] Disclaimer: The information contained in this section may have been updated after the patient was seen, as this information can be updated by other users. 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) Smoking Status: Never smoker alcohol intake: never substance use type: denies use current occupational status: employed Travel in the last 8 weeks: None household members: spouse housing: house current occupation: [employer] caffeine: Yes ROS Obtained: Yes All systems reviewed & no additional complaints except as documented Constitutional Constitutional: Reports system reviewed and no additional complaints, except as documented Eyes Eyes: Reports system reviewed and no additional complaints, except as documented ENT Ears, Nose, Mouth, and Throat: Reports system reviewed and no additional complaints, exce
[2022-11-07 16:24] VITALS: BP 148/87; PULSE 68; RESP 18; TEMP 36.7; O2SAT 98
== END 2022-11-07 16:33 | disposition home or self-care (01) ==
PROVIDERS: Emergency Provider Nurse Practitioner Family; PCP Internal Medicine Adolescent Medicine
DX: M25.572 Pain in left ankle and joints of left foot (principal); G40.909 Epilepsy, unspecified, not intractable, without status epilepticus; X50.1XXA Overexertion from prolonged static or awkward postures, initial encounter
CPT/HCPCS: 73610; 96372; 99212; 99214; G0463

== ENCOUNTER 2023-03-07 16:45 | Emergency (ER) | payer BC, SELFPAY ==
[2023-03-07 17:05] VITALS: BP 139/88; PULSE 91; RESP 18; TEMP 36.8; O2SAT 98; BMI 35.3
--- NOTE | 2023-03-07 17:32 | EXP.UTC ---
Discharge Plan Disposition Patient Disposition: Home, Self-Care Condition: Good Prescriptions Prescriptions: New methylprednisolone [Medrol (Vu)] 4 mg tablets,dose pack See Rx Instructions .Route .COMPLEX 6 Days Qty: 21 0RF Rx Instructions: taper pack; No Action ibuprofen 600 mg tablet 600 mg PO Q8H PRN (Reason: pain) Qty: 10 0RF methylprednisolone 4 mg Tablets,Dose Pack 4 mg PO DIRECTED Qty: 21 0RF Referrals Follow up/Referrals: Sabina Daniel APRN [Nurse Practitioner] - See instructions (call office for appointment) Jhonny Turner MD [Primary Care Provider] - See instructions Activity Restrictions/Add. Instructions Additional Instructions/Restrictions: Start oral steriods tomorrow Follow up with your Family Doctor if symptoms persist or worsen return if needed straight to ER if any life threatening symptoms Clinical Impressions Clinical Impression: Left foot pain Stand Alone Forms Stand Alone Forms: Work/School Release Instructions Patient Instructions: DI for Ankle Pain, DI for Foot Pain Discharge ED Provider: Evette Bhatt [facility] General Stated complaint: LT foot pain Mode of Arrival: Ambulatory Source of Information: Patient Limitations: No Limitations Time Seen by Provider: 03/07/23 17:32 Description of Symptoms (Recalled from Triage Doc. by RN): PATIENT C/O LEFT ANKLE PAIN THAT STARTED THIS MORNING HEENT Symptoms (Recalled from RN notes): No Resp Symptoms (Recalled from RN notes): No Skin Symptoms (Recalled from RN notes): No MS Symptoms (Recalled from RN notes): Yes Functional Status (Recalled from RN notes): WNL History of Present Illness Provider Complaint: Patient states that he hurt his foot several years ago and had to have surgery on it States that he also has a history of gout States that he hasnt done anything to hurt it and it is like what he has when it flares up States that he usually gets a couple of shots and then it feels better so today he came in to get checked Related Data Previous Rx's Medication Instructions Recorded methylprednisolone 4 mg tablets in 4 mg PO DIRECTED #21 tabs 09/23/22 a dose pack ibuprofen 600 mg tablet 600 mg PO Q8H PRN pain #10 tabs 11/07/22 methylprednisolone 4 mg tablets in See Rx Instructions .Route 03/07/23 a dose pack (Medrol (Vu)) .COMPLEX 6 days #21 tabs Allergies Allergy/AdvReac Type Severity Reaction Status Date / Time ampicillin [AMPICILLIN] Allergy Unknown I-HIVES Verified 09/23/22 16:30 Penicillins [PENICILLINS] Allergy Unknown I-HIVES Verified 09/23/22 16:30 poliomyelitis vaccine,killed Allergy Unknown INCREASED Verified 09/23/22 16:30 [POLIOMYELITIS FEVER LED VACCINE,KILLED] TO SEIZURES Worker's Comp Is this a Worker's Comp case?: No [facility] Disclaimer: The information contained in this section may have been updated after the patient was seen, as this information can be updated by other users. Medical History , [employer]) Seizure disorder Surgical History , [employer]) History of ankle surgery Hx of tympanostomy tubes Social History , [employer]) Smoking Status: Never smoker alcohol intake: never substance use type: denies use current occupational status: employed Travel in the last 8 weeks: None household members: spouse housing: house current occupation: [employer] caffeine: Yes ROS Obtained: Yes All systems reviewed & no additional complaints except as documented and Yes Systems reviewed as appropriate & no additional complaints except as documented ENT Ears, Nose, Mouth, and Throat: Reports system reviewed and no additional complaints, except as documented and Reports as per HPI Cardiovascular Cardiovascular: Reports system reviewed and no additional complaints, except as documented and Reports as p
[2023-03-07 18:02] VITALS: BP 139/88; PULSE 91; RESP 18; TEMP 36.8; O2SAT 98
== END 2023-03-07 18:08 | disposition home or self-care (01) ==
PROVIDERS: Emergency Provider Nurse Practitioner; PCP Internal Medicine Adolescent Medicine
DX: M79.672 Pain in left foot (principal)
CPT/HCPCS: 96372; 99212; 99214; G0463

== ENCOUNTER 2023-07-04 20:06 | Outpatient (CLI) | payer BC, SELFPAY | END 2023-07-04 23:59 | LOC: LAB.DROPOF 20:07 | PROVIDERS: PCP Nurse Practitioner Family; Visit Provider Nurse Practitioner Family | DX: R07.0 Pain in throat (principal) | CPT/HCPCS: 87070 ==

== ENCOUNTER 2023-08-08 05:39 | Emergency (ER) | payer BC, SELFPAY ==
[2023-08-08 05:45] VITALS: BP 152/101; PULSE 77; RESP 20; O2SAT 98; BMI 33.0
--- NOTE | 2023-08-08 05:49 | XR_ITS ---
PROCEDURE INFORMATION: Exam: XR Chest Exam date and time: 08/08/2023 5:53 AM Age: 32 years old Clinical indication: Cough; Additional info: Cough, cp TECHNIQUE: Imaging protocol: Radiologic exam of the chest. Views: 2 views. COMPARISON: No relevant prior studies available. FINDINGS: Lungs: Unremarkable. No consolidation. Pleural spaces: Unremarkable. No pleural effusion. No pneumothorax. Heart/Mediastinum: Unremarkable. No cardiomegaly. Bones/joints: Unremarkable. IMPRESSION: No acute findings.
--- NOTE | 2023-08-08 05:52 | ED_ITS ---
Discharge Plan Disposition Chief Complaint: Upper Respiratory Infection Prescriptions Prescriptions: New [id number] [Bromfed DM] 2-30-10 mg/5 mL syrup 5 ml PO Q6H PRN (Reason: cold symptoms) Qty: 118 0RF No Action pseudoephedrine HCl [Sudafed 12 Hour] 120 mg tablet extended release 120 mg PO Q12H PRN (Reason: nasal congestion) Qty: 20 0RF Referrals Follow up/Referrals: Provider,Referral, MD [Primary Care Provider] - See instructions Activity Restrictions/Add. Instructions Additional Instructions/Restrictions: You were evaluated in the emergency department today. We feel that your symptoms are likely related to musculoskeletal chest wall pain in the setting of a viral upper respiratory infection. Please take Tylenol and ibuprofen every 4- 6 hours at home as needed for pain. Follow-up your primary care provider over the next week for reassessment. 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 Return for new or worsening symptoms. Clinical Impressions Clinical Impression: Right-sided chest wall pain, Viral URI with cough Instructions Patient Instructions: DI for Viral Upper Respiratory Infection -- Adult, DI for Atypical Chest Pain Discharge ED Provider: Tatyana Laboy General Adult HPI General Chief complaint: Upper Respiratory Infection Stated complaint: Cough with pain in chest, congestion Time Seen by Provider: 08/08/23 05:44 Mode of Arrival: Ambulatory Source of Information: Patient Limitations: No Limitations Description of Symptoms (Recalled from ER Triage Doc. by RN): pt to ED with complaints of cough and right side chest pain with coughing X2 days. Pt also reports sinus drainage History of Present Illness HPI narrative: This patient is a 32-year-old male who denies significant past medical history presenting to the emergency department for evaluation with concern for cough x 2 days. He states what prompted him to come in today was that he did not sleep well and is having pain on the right side of his chest wall whenever he coughs. It is not present at rest, he denies any shortness of breath or other concerns. He states that he has not taken any medication for the symptoms. He also notes sinus drainage and congestion. No other concerns noted at this time. No history of blood clots, clotting disorders, calf pain or swelling, travel, surgeries, or other concerns. No falls or traumatic injuries noted. Related Data Previous Rx's Medication Instructions Recorded pseudoephedrine HCl 120 mg 120 mg PO Q12H PRN nasal 07/04/23 tablet,extended release (Sudafed congestion #20 tabs 12 Hour) [id number] 5 ml PO Q6H PRN cold symptoms #118 08/08/23 2 mg-30 mg-10 mg/5 mL oral syrup mL (Bromfed DM) Allergies Allergy/AdvReac Type Severity Reaction Status Date / Time ampicillin [AMPICILLIN] Allergy Unknown I-HIVES Verified 07/04/23 14:01 Penicillins [PENICILLINS] Allergy Unknown I-HIVES Verified 07/04/23 14:01 poliomyelitis vaccine,killed Allergy Unknown INCREASED Verified 07/04/23 14:01 [POLIOMYELITIS FEVER LED VACCINE,KILLED] TO SEIZURES [facility] Disclaimer: The information contained in this section may have been updated after the patient was seen, as this information can be updated by other users. Medical History Left foot pain Seizure disorder Viral syndrome Exposure to COVID-19 virus Sinusitis Right ankle pain Surgical History History of carpal tunnel surgery Hx of tympanostomy tubes History of ankle surgery Family History Mother Cancer Diabetes Social History Smoking Status: Never smoker alcohol intake: never substance use type: denies use current occupational status: employed Travel in the last 8 weeks: None household members: spouse and children housing: house current occupation: [employer] caffeine: Yes ROS Obtained: Yes All systems reviewed & no additional complaints except as documented Physical Exam General General appearance: alert and in no apparent distress Head Head exam: atraumatic and normocephalic Eye Eye exam: Present normal appearance, PERRL and EOMI ENT ENT exam: Present normal exam, normal oropharynx, mucous membranes moist and normal external ear exam Neck Neck exam: Present normal inspection, full ROM and trachea midline; Absent tenderness Chest Chest inspection: Present symmetric chest wall rise and tenderness (Right chest wall) Respiratory Respiratory exam: Present normal lung sounds bilaterally; Absent respiratory distress, wheezes, stridor or accessory muscle use Cardiovascular Cardiovascular exam: Present regular rate and normal rhythm Abdominal Exam Abdominal exam: Present soft; Absent distention, tenderness or guarding Extremities Exam Extremities exam: Present normal inspection, full ROM and normal capillary refill; Absent tenderness or edema Back Exam Back exam: Present normal inspection and full ROM; Absent tenderness Neurological Exam Neurological exam: Present alert, oriented X3, CN II-XII intact and normal gait; Absent motor sensory deficit Psychiatric Psychiatric exam: Present normal affect and normal mood Skin Skin exam: Present warm and dry Medical Decision Making Medical Records Medical records reviewed: Yes I reviewed the patient's medical records. Fredi Inquiry Pt receiving controlled substance: No Vital Signs: 08/08/23 05:45 Pulse Rate [Left Radial] 77 Respiratory Rate 20 Blood Pressure [Right Arm] 152/101 H Blood Pressure Mean [Right Arm] 118 Blood Pressure Source [Right Arm] Automatic Cuff Blood Pressure Position [Right Arm] Sitting 02 Sat by Pulse Oximetry 98 Oxygen Delivery Method Room Air Lab Data Lab results reviewed: Yes I reviewed the patient's lab results. Orders (Tests/Meds): ED MEDICATIONS Discontinued Medications Generic Name Dose Route Start Last Admin Trade Name Everq PRN Reason Stop Dose Admin Acetaminophen 1,000 mg 08/08/23 05:49 08/08/23 06:05 Acetaminophen 500mg Tab PO 08/08/23 05:50 1,000 mg ONCE ONE Administration Ibuprofen 800 mg 08/08/23 05:49 08/08/23 06:05 Ibuprofen 400 Mg Tablet PO 08/08/23 05:50 800 mg ONCE ONE Administration ORDERS Category Date Time Status XR chest 2V Stat Exams 08/08/23 05:49 Taken Rapid PCR Covid and Flu A/B Stat Lab 08/08/23 06:50 Received ECG Data Tracing #1: I reviewed this ECG and interpreted as documented below: Normal sinus rhythm with a ventricular rate of [address] changes concerning for ischemia. Normal axis and intervals. ECG initial impression date: 08/08/23 ECG initial impression time: 06:02 Medical Decision Narrative: In summary, this patient is a 32-year-old male presenting to the Emergency Department for evaluation of right-sided chest wall pain that is present with coughing. Differential diagnoses considered include but are not limited to costochondritis, musculoskeletal strain/pain, pleurisy, viral syndrome, pneumonia. Ruling out the most morbid conditions drove assessment. On exam, the patient is well-appearing with normal vital signs on cardiac telemetry. He has pain that is reproducible with palpation. Cardiopulmonary exam is reassuring. I feel he likely has a viral syndrome causing acute cough as well as musculoskeletal chest wall pain as a result of this. Workup included chest x-ray, EKG, and viral swab. He was given oral Tylenol and ibuprofen for symptomatic improvement of pain. I considered obtaining labs including troponin, however given the history which is not consistent with ACS but instead with musculoskeletal pain, I do not feel this would change control analyst. I independently interpreted XR prior to the radiologist read and noted no acute focal consolidation, no pneumothorax. Please see their read for final interpretation. Viral swab is pending. EKG is normal, and patient is PERC negative for PE. At this time, patient deemed to be appropriate for discharge. Patient given strict return precautions and instructions for supportive management. Patient was discharged in stable condition after all questions were answered. Critical Care Critical Care Time Critical Care Time: No
--- NOTE | 2023-08-08 05:59 | ECG_ITS ---
APPROVED REPORT Exam: Resting ECG HR:71 bpm ECG Measurements Heart Rate 71 AXES WV 184 P 55 QRSd 92 QRS 81 QT 362 T 52 QTc 384 Conclusion SINUS RHYTHM NORMAL ECG Electronically signed by : KSENIA REEYS, 08/08/2023 16:30:54
--- NOTE | 2023-08-08 06:03 | PC.NURSE ---
patient to XR
[2023-08-08] MEDS: ACETAMINOPHEN 500MG TAB 1000 MG PO (06:05)
[2023-08-08] MEDS: IBUPROFEN 400 MG TABLET 800 MG PO (06:05)
--- NOTE | 2023-08-08 06:05 | PC.NURSE ---
patient back from XR
[2023-08-08 06:53] LABS: Coronavirus 19, PCR Not Detected (NotDetected); Influenza A, PCR Not Detected (NotDetected); Influenza B, PCR Not Detected (NotDetected)
[2023-08-08 07:05] VITALS: BP 146/06; PULSE 74; RESP 17; TEMP 36.8; O2SAT 96
== END 2023-08-08 07:08 | disposition home or self-care (01) ==
PROVIDERS: Emergency Provider Emergency Medicine
DX: R07.89 Other chest pain (principal); J06.9 Acute upper respiratory infection, unspecified; R05.9 Cough, unspecified; G40.909 Epilepsy, unspecified, not intractable, without status epilepticus
CPT/HCPCS: 71046; 87636; 93005; 99284; 99285

== ENCOUNTER 2024-01-04 15:08 | Outpatient (POV) | payer BC, SELFPAY | END 2024-01-04 23:59 | disposition home or self-care (01) | LOC: SC 15:09 | PROVIDERS: Visit Provider Specialist/Technologist | DX: Z00.00 Encounter for general adult medical examination without abnormal findings (principal) ==

== ENCOUNTER 2024-01-24 13:00 | Outpatient (CLI) | payer BC, SELFPAY ==
[2024-01-24 17:10] LABS: Influenza A, PCR Not Detected (NotDetected); Influenza B, PCR Not Detected (NotDetected)
[2024-01-24 19:53] LABS: Coronavirus 19, PCR Detected (NotDetected)
== END 2024-01-24 23:59 | disposition home or self-care (01) ==
LOC: LAB.DROPOF 01-25 09:43
PROVIDERS: PCP Nurse Practitioner Family; Visit Provider Nurse Practitioner Family
DX: J06.9 Acute upper respiratory infection, unspecified (principal)
CPT/HCPCS: 87070; 87636

== ENCOUNTER 2024-02-29 10:44 | Outpatient (CLI) | payer BC, SELFPAY | END 2024-02-29 23:59 | disposition home or self-care (01) | LOC: LAB.DROPOF 03-02 10:45 | PROVIDERS: PCP Nurse Practitioner Family; Visit Provider Student in an Organized Health Care Education/Training Program | DX: H92.11 Otorrhea, right ear (principal) | CPT/HCPCS: 87070; 87077; 87186 ==

== ENCOUNTER 2024-03-15 15:45 | Emergency (ER) | payer BC, SELFPAY ==
[2024-03-15 16:10] VITALS: BP 133/96; PULSE 76; RESP 19; TEMP 36.6; O2SAT 99; BMI 34.2
--- NOTE | 2024-03-15 16:26 | ED_ITS ---
Discharge Plan Disposition Patient Disposition: Home, Self-Care Condition: Good Prescriptions Prescriptions: New methylprednisolone [Medrol (Vu)] 4 mg tablets,dose pack See Rx Instructions .Route .COMPLEX 6 Days Qty: 21 0RF Rx Instructions: taper pack; Referrals Follow up/Referrals: Kayla Grover APRN [Primary Care Provider] - See instructions Activity Restrictions/Add. Instructions Additional Instructions/Restrictions: Start oral steriods tomorrow Over the counter Motrin for pain and inflammation Follow up with your Family Doctor if no improvement or any worsening of symptoms Clinical Impressions Clinical Impression: Right ankle pain Instructions Patient Instructions: DI for Ankle Pain, Methylprednisolone Print Language Print Language: Mongolian Discharge ED Provider: Evette [place]hatt [facility] [place] [facility] [place] General Stated complaint: Richt ankle pain Mode of Arrival: Ambulatory Source of Information: Patient Limitations: No Limitations Time Seen by Provider: 03/15/24 16:26 Description of Symptoms (Recalled from Triage Doc. by RN): PATIENT C/O RIGHT ANKLE PAIN, NO KNOWN INJURY HEENT Symptoms (Recalled from RN notes): No Resp Symptoms (Recalled from RN notes): No Skin Symptoms (Recalled from RN notes): No MS Symptoms (Recalled from RN notes): Yes Functional Status (Recalled from RN notes): WNL History of Present Illness Provider Complaint: Patient states that he has surgery done on his ankle several years ago and at times he will have swelling and inflammation and has to come in to get a couple shots to help States it has been bothering him so he came in wanting to get the shots to help Denies known injury Related Data Previous Rx's ?Medication ?Instructions ?Recorded methylprednisolone 4 mg tablets in See Rx Instructions .Route 03/15/24 a dose pack (Medrol (Vu)) .COMPLEX 6 days #21 tabs Allergies Allergy/AdvReac Type Severity Reaction Status Date / Time ampicillin [AMPICILLIN] Allergy Unknown I-HIVES Verified 02/29/24 15:41 Penicillins [PENICILLINS] Allergy Unknown I-HIVES Verified 02/29/24 15:41 poliomyelitis vaccine,killed Allergy Unknown INCREASED Verified 02/29/24 15:41 [POLIOMYELITIS FEVER LED VACCINE,KILLED] TO SEIZURES Worker's Comp Is this a Worker's Comp case?: No [facility] Disclaimer: The information contained in this section may have been updated after the patient was seen, as this information can be updated by other users. Medical History (Updated 03/15/24 @ 16:33 by Evette Bhatt APRN) Ear drainage right Impacted cerumen, right ear Loud snoring Mixed hearing loss, bilateral Hearing difficulty of both ears Left foot pain Seizure disorder Viral syndrome Exposure to COVID-19 virus Sinusitis Right ankle pain Surgical History History of carpal tunnel surgery Hx of tympanostomy tubes History of ankle surgery Family History Mother Cancer Diabetes Social History Smoking Status: Never smoker alcohol intake: never substance use type: denies use current occupational status: employed Travel in the last 8 weeks: None household members: spouse and children housing: house current occupation: [employer] caffeine: Yes ROS Obtained: Yes All systems reviewed & no additional complaints except as documented and Yes Systems reviewed as appropriate & no additional complaints except as documented Constitutional Constitutional: Reports system reviewed and no additional complaints, except as documented, Reports as per HPI and Denies fever(s) ENT Ears, Nose, Mouth, and Throat: Reports system reviewed and no additional complaints, except as documented and Reports as per HPI Cardiovascular Cardiovascular: Reports system reviewed and no additional complaints, except as documented and Reports as per HPI Respiratory Respiratory: Reports system reviewed and no additional complaints, except as documented and Reports as per HPI Gastrointestinal Gastrointestingal: Reports system reviewed and no additional complaints, except as documented and as per HPI Musculoskeletal Musculoskeletal: Reports system reviewed and no additional complaints, except as documented, Reports as per HPI and Reports other (pain and mild swelling in right ankle ) Physical Exam General General appearance: alert and in no apparent distress ENT ENT exam: Present mucous membranes moist Respiratory Respiratory exam: Present normal lung sounds bilaterally; Absent respiratory distress or wheezes Cardiovascular Cardiovascular exam: Present regular rate, normal rhythm and normal heart sounds Expanded Lower Extremity Exam Right: Ankle image: 2 1. reports tenderness and mild swelling no warmth Neurological Exam Neurological exam: Present alert, oriented X3 and normal gait Medical Decision Making Medical Records Screening: Per USPSTF and CDC recommendations, given the prevalence of disease in our region, it is our hospital?s policy to screen for HIV and viral Hepatitis for all patients aged 18 and over and those with ongoing risk factors. Fredi Inquiry Pt receiving controlled substance: No Fredi was queried for this patient: No Vital Signs: 03/15/24 16:10 Temperature 97.8 F Temperature Source Oral Pulse Rate [Left Brachial] 76 Respiratory Rate 19 Blood Pressure [Left Arm] 133/96 H Blood Pressure Mean [Left Arm] 108 Blood Pressure Source [Left Arm] Automatic Cuff Blood Pressure Position [Left Arm] Sitting 02 Sat by Pulse Oximetry 99 Oxygen Delivery Method Room Air Medical Decision Narrative: Discussed xray and Uric due to hx of gout and he declined states just wants the shots
[2024-03-15] MEDS: KETOROLAC 60MG/2ML VIAL 60 MG IM (16:36)
[2024-03-15] MEDS: METHYLPREDNISOLONE SOD SUCC 125MG VIAL 125 MG IM (16:36)
[2024-03-15 16:57] VITALS: BP 133/96; PULSE 76; RESP 19; TEMP 36.6; O2SAT 99
== END 2024-03-15 16:59 | disposition home or self-care (01) ==
PROVIDERS: Emergency Provider Nurse Practitioner; PCP Nurse Practitioner Family
DX: M25.571 Pain in right ankle and joints of right foot (principal)
CPT/HCPCS: 96372; 99213; G0381; J1885; J2919

== ENCOUNTER 2024-05-28 12:06 | Emergency (ER) | payer BC, SELFPAY ==
[2024-05-28 13:25] VITALS: BP 147/92; PULSE 71; RESP 18; TEMP 36.7; O2SAT 100; BMI 33.0
--- NOTE | 2024-05-28 13:54 | EXP.UTC ---
Discharge Plan Disposition Patient Disposition: Home, Self-Care Condition: Good Prescriptions Prescriptions: No Action No Known Home Medications Referrals Follow up/Referrals: Kayla Grover APRN [Primary Care Provider] - See instructions Activity Restrictions/Add. Instructions Additional Instructions/Restrictions: Start oral steriods tomorrow Follow up with your Family Doctor if symptoms persist Return if needed Straight to ER if any life threatening symptoms Clinical Impressions Clinical Impression: Ankle pain, left Instructions Patient Instructions: DI for Gout, Ibuprofen Print Language Print Language: Mozambican Discharge ED Provider: Evette [place]hat[place] [facility] [place] General Stated complaint: Pain in L ankle Mode of Arrival: Ambulatory Source of Information: Patient Limitations: No Limitations Time Seen by Provider: 05/28/24 13:55 Description of Symptoms (Recalled from Triage Doc. by RN): PATIENT C/O LEFT ANKLE PAIN THAT STARTED YESTERDAY. NO KNOWN INJURY HEENT Symptoms (Recalled from RN notes): No Resp Symptoms (Recalled from RN notes): No Skin Symptoms (Recalled from RN notes): No MS Symptoms (Recalled from RN notes): Yes Functional Status (Recalled from RN notes): WNL History of Present Illness Provider Complaint: Patient states that he has a hx of gout States that it flares up from time to time and he has to come in and get a couple shots and medrol pack to help it States ankle started bothering him last night and today it was starting to swell so he came in Related Data Home Medications ?Medication ?Instructions ?Recorded ?Confirmed No Known Home Medications 05/28/24 05/28/24 Allergies Allergy/AdvReac Type Severity Reaction Status Date / Time ampicillin (AMPICILLIN) Allergy Unknown I-HIVES Verified 02/29/24 15:41 Penicillins (PENICILLINS) Allergy Unknown I-HIVES Verified 02/29/24 15:41 poliomyelitis vaccine,killed Allergy Unknown INCREASED Verified 02/29/24 15:41 (POLIOMYELITIS FEVER LED VACCINE,KILLED) TO SEIZURES Worker's Comp Is this a Worker's Comp case?: No [facility] Disclaimer: The information contained in this section may have been updated after the patient was seen, as this information can be updated by other users. Medical History (Updated 05/28/24 @ 14:03 by Evette Bhatt APRN) Ear drainage right Impacted cerumen, right ear Loud snoring Mixed hearing loss, bilateral Hearing difficulty of both ears Left foot pain Seizure disorder Viral syndrome Exposure to COVID-19 virus Sinusitis Right ankle pain Surgical History History of carpal tunnel surgery Hx of tympanostomy tubes History of ankle surgery Family History Mother Cancer Diabetes Social History Smoking Status: Never smoker alcohol intake: never substance use type: denies use current occupational status: employed Travel in the last 8 weeks: None household members: spouse and children housing: house current occupation: [employer] caffeine: Yes Have you lived/traveled outside [place] in past 30 days?: No Contact w/someone who lives/traveled outside [place] past 30 days?: No Exposure to someone with infectious disease in past 14 days?: No Do you have a fever (greater than 100.4 F or 38 C)?: No Have you tested positive for COVID-19: No Exposed to someone with COVID-19 in past 14 days?: No Do you have a sore throat?: No Do you have a cough?: No Do you have any weakness?: No Do you have any diarrhea?: No Are you experiencing any unusual bleeding?: No Do you have any muscle aches/pain?: No Do you have any abdominal pain?: No Are you experiencing loss of taste or smell?: No ROS Obtained: Yes All systems reviewed & no additional complaints except as documented and Yes Systems reviewed as appropriate & no additional complaints except as documented Constitutional Constitutional: Reports system reviewed and no additional complaints, except as documented and Reports as per HPI ENT Ears, Nose, Mouth, and Throat: Reports system reviewed and no additional complaints, except as documented and Reports as per HPI Cardiovascular Cardiovascular: Reports system reviewed and no additional complaints, except as documented and Reports as per HPI Respiratory Respiratory: Reports system reviewed and no additional complaints, except as documented and Reports as per HPI Gastrointestinal Gastrointestingal: Reports system reviewed and no additional complaints, except as documented and as per HPI Musculoskeletal Musculoskeletal: Reports system reviewed and no additional complaints, except as documented, Reports as per HPI and Reports other (pain, swelling and redness to left ankle hx of gout) Physical Exam General General appearance: alert and in no apparent distress Respiratory Respiratory exam: Present normal lung sounds bilaterally; Absent respiratory distress or wheezes Cardiovascular Cardiovascular exam: Present regular rate, normal rhythm and normal heart sounds Abdominal Exam Abdominal exam: Present soft and normal bowel sounds; Absent distention or tenderness Expanded Lower Extremity Exam Left: Ankle exam: Present tenderness, swelling (mild) and erythema (mild) Ankle image: 1. reports tenderness and pain that started last night hx of gout Neurological Exam Neurological exam: Present alert, oriented X3 and normal gait Medical Decision Making Medical Records Screening: Per USPSTF and CDC recommendations, given the prevalence of disease in our region, it is our hospital?s policy to screen for HIV and viral Hepatitis for all patients aged 18 and over and those with ongoing risk factors. Fredi Inquiry Pt receiving controlled substance: No Fredi was queried for this patient: No Vital Signs: 05/28/24 13:25 Temperature 98.1 F Temperature Source Oral Pulse Rate [Left Brachial] 71 Respiratory Rate 18 Blood Pressure [Left Arm] 147/92 H Blood Pressure Mean [Left Arm] 110 Blood Pressure Source [Left Arm] Automatic Cuff Blood Pressure Position [Left Arm] Sitting 02 Sat by Pulse Oximetry 100 Oxygen Delivery Method Room Air Medical Decision Narrative: discussed with patient about uric acid and xray and he declined
[2024-05-28] MEDS: METHYLPREDNISOLONE SOD SUCC 125MG VIAL 125 MG IM (14:10)
[2024-05-28] MEDS: KETOROLAC 60MG/2ML VIAL 60 MG IM (14:10)
[2024-05-28 14:14] VITALS: BP 147/92; PULSE 71; RESP 18; TEMP 36.7; O2SAT 100
== END 2024-05-28 14:20 | disposition home or self-care (01) ==
PROVIDERS: Emergency Provider Nurse Practitioner; PCP Nurse Practitioner Family
DX: M25.572 Pain in left ankle and joints of left foot (principal)
CPT/HCPCS: 96372; 99212; G0381; J1885; J2919

== ENCOUNTER 2024-07-14 11:58 | Emergency (ER) | payer BC, SELFPAY ==
[2024-07-14 12:06] VITALS: BP 154/99; PULSE 89; RESP 14; TEMP 36.7; O2SAT 98; BMI 33.0
--- NOTE | 2024-07-14 12:15 | XR_ITS ---
PROCEDURE INFORMATION: Exam: XR Right Ankle Exam date and time: 07/14/2024 12:22 PM Age: 33 years old Clinical indication: Pain; Ankle; Right; Additional info: Pain /swelling TECHNIQUE: Imaging protocol: Radiologic exam of the right ankle. Views: 3 or more views. Total images: 3 COMPARISON: No relevant prior studies available. FINDINGS: Bones/joints: No evidence of acute fracture or dislocation. Calcaneal spurs are present. Soft tissues: Mild medial soft tissue swelling. IMPRESSION: 1. No evidence of acute fracture or dislocation. 2. Mild medial soft tissue swelling.
--- NOTE | 2024-07-14 12:18 | ED_ITS ---
<Statement entered by Pancho Alonso MD - 07/15/24 14:25> I was consulted by the NUSRAT, and we discussed the complexity of the problems being addressed. I approved the treatment and management plan for this patient's care in the emergency department, thus performing a substantive portion of the medical decision making. Pancho Alonso MD, TORIE, FACEP Discharge Plan Disposition Patient Disposition: Home, Self-Care Condition: Good Prescriptions Prescriptions: New hydrocodone-acetaminophen 5-325 mg tablet 1 tab PO Q6H PRN (Reason: pain) 3 Days Qty: 12 0RF No Action methylprednisolone [Medrol (Vu)] 4 mg tablets,dose pack See Rx Instructions .Route .COMPLEX 6 Days Qty: 21 0RF Rx Instructions: taper pack; Referrals Follow up/Referrals: Thomas Lock DO [Staff Physician] - See instructions Jhonny Turner MD [Primary Care Provider] - See instructions Activity Restrictions/Add. Instructions Additional Instructions/Restrictions: Please remain nonweightbearing until you are cleared by orthopedic surgeon Dr. Lock. Make a follow-up appoint within 1 week. Clinical Impressions Clinical Impression: Bimalleolar ankle fracture Qualifiers: Encounter type: initial encounter Fracture type: closed Laterality: right Qualified Code(s): S82.841A - Displaced bimalleolar fracture of right lower leg, initial encounter for closed fracture Acute ankle pain Qualifiers: Laterality: right Qualified Code(s): M25.571 - Pain in right ankle and joints of right foot Instructions Patient Instructions: Ankle Fracture Print Language Print Language: Estonian Discharge ED Provider: Pancho Alonso General Adult HPI <Nicci Bran APRN - Last Filed: 07/14/24 13:00> General Chief complaint: Extremity Injury, Lower Stated complaint: right ankle pain Time Seen by Provider: 07/14/24 12:01 Mode of Arrival: Ambulatory Source of Information: Patient Limitations: No Limitations Description of Symptoms (Recalled from ER Triage Doc. by RN): pt c/o R ankle and foot pain ongoing since Tuesday. Pt states two days prior he dropped a pallet lid that was approximately 20lbs on his foot. pt states his pain is 7/10 and aching. pts ankle is edematous, warm and pedal pulses intact. 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 History of Present Illness HPI narrative: Patient is a 33-year-old male who presents to the ED with complaints of right ankle pain x 2 weeks. Patient states he is having pain with weightbearing. Related Data Previous Rx's ?Medication ?Instructions ?Recorded methylprednisolone 4 mg tablets in See Rx Instructions .Route 05/28/24 a dose pack (Medrol (Vu)) .COMPLEX 6 days #21 tabs hydrocodone 5 mg-acetaminophen 325 1 tab PO Q6H PRN pain 3 days #12 07/14/25 mg tablet tabs Allergies Allergy/AdvReac Type Severity Reaction Status Date / Time ampicillin (AMPICILLIN) Allergy Unknown I-HIVES Verified 02/29/24 15:41 Penicillins (PENICILLINS) Allergy Unknown I-HIVES Verified 02/29/24 15:41 poliomyelitis vaccine,killed Allergy Unknown INCREASED Verified 02/29/24 15:41 (POLIOMYELITIS FEVER LED VACCINE,KILLED) TO SEIZURES [facility] <Nicci Bran APRN - Last Filed: 07/14/24 13:00> [facility] Disclaimer: The information contained in this section may have been updated after the patient was seen, as this information can be updated by other users. Medical History (Updated 07/14/24 @ 12:50 by Nicci Bran APRN) Ear drainage right Impacted cerumen, right ear Loud snoring Mixed hearing loss, bilateral Hearing difficulty of both ears Left foot pain Seizure disorder Viral syndrome Exposure to COVID-19 virus Sinusitis Right ankle pain Surgical History History of carpal tunnel surgery Hx of tympanostomy tubes History of ankle surgery Family History Mother Cancer Diabetes Social History Smoking Status: Never smoker alcohol intake: never substance use type: denies use current occupational status: employed Travel in the last 8 weeks: None household members: spouse and children housing: house current occupation: [employer] caffeine: Yes Have you lived/traveled outside [place] in past 30 days?: No Contact w/someone who lives/traveled outside [place] past 30 days?: No Exposure to someone with infectious disease in past 14 days?: No Do you have a fever (greater than 100.4 F or 38 C)?: No Have you tested positive for COVID-19: No Exposed to someone with COVID-19 in past 14 days?: No Do you have a sore throat?: No Do you have a cough?: No Do you have any weakness?: No Do you have any diarrhea?: No Are you experiencing any unusual bleeding?: No Do you have any muscle aches/pain?: No Do you have any abdominal pain?: No Are you experiencing loss of taste or smell?: No Other Medical History Have you received the Flu Vaccine for this season: No Have you received the Pneumonia Vaccine: No <Nicci Bran APRN - Last Filed: 07/14/24 13:00> ROS Obtained: Yes Systems reviewed as appropriate & no additional complaints except as documented Physical Exam <Nicci Bran APRN - Last Filed: 07/14/24 13:00> General General appearance: alert and in no apparent distress Head Head exam: atraumatic and normocephalic Eye Eye exam: Present normal appearance and PERRL ENT ENT exam: Present normal exam Neck Neck exam: Present normal inspection Chest Chest inspection: Present normal inspection and symmetric chest wall rise; Absent tenderness Respiratory Respiratory exam: Present normal lung sounds bilaterally Cardiovascular Cardiovascular exam: Present regular rate Abdominal Exam Abdominal exam: Present soft and normal bowel sounds; Absent tenderness Extremities Exam Extremities exam: Present full ROM and other (Right lower extremity circumferential edema, tenderness, neurovascular status intact) Back Exam Back exam: Present normal inspection and full ROM Neurological Exam Neurological exam: Present alert and oriented X3 Psychiatric Psychiatric exam: Present normal affect and normal mood Skin Skin exam: Present warm and dry Medical Decision Making <Nicci Bran APRN - Last Filed: 07/14/24 13:00> Medical Records Screening: Per USPSTF and CDC recommendations, given the prevalence of disease in our region, it is our hospital?s policy to screen for HIV and viral Hepatitis for all patients aged 18 and over and those with ongoing risk factors. Fredi Inquiry Pt receiving controlled substance: Yes Fredi was queried for this patient: Yes Risks and benefits of using a controlled substance: were discussed with pt by me Vital Signs: 07/14/24 12:06 Temperature 98.1 F Temperature Source Oral Pulse Rate [Left] 89 Respiratory Rate 14 Blood Pressure [Right Arm] 154/99 H Blood Pressure Mean [Right Arm] 117 Blood Pressure Source [Right Arm] Automatic Cuff Blood Pressure Position [Right Arm] Sitting 02 Sat by Pulse Oximetry 98 Oxygen Delivery Method Room Air Orders (Tests/Meds): ED MEDICATIONS Generic Name Dose Route Start Last Admin Trade Name Jared PRN Reason Stop Dose Admin Hydrocodone Bitart/Acetaminophen 1 tab 07/14/24 12:47 07/14/24 12:49 Hydrocodone/Apap 5/325 Mg Tablet PO 07/14/24 12:48 1 tab ONCE ONE Administration ORDERS Category Date Time Status Ankle XR -Right minimum 3 Views [XR ankle RT min 3V] Exams 07/14/24 12:15 Taken Stat CBC w/Auto Diff [Complete Blood Count Auto Diff] Stat Lab 07/14/24 12:15 Ordered CMP [Comprehensive Metabolic Panel] Stat Lab 07/14/24 12:15 Ordered CRP [C-Reactive Protein] Stat Lab 07/14/24 12:15 Ordered ESR [Erythrocyte Sedimentation Rate] Stat Lab 07/14/24 12:15 Ordered Uric Acid Stat Lab 07/14/24 12:15 Ordered Medical Decision Narrative: In summary, patient is a 33-year-old male who presents to the ED for right ankle pain. Patient states he has had right ankle pain for 2 weeks, worsening this week. Patient states that he has pain with ROM and pain with weightbearing. He adds that he dropped a pallet on his foot approximately 2 weeks ago. Upon initial exam, patient is alert, oriented and cooperative. Patient is hemodynamically stable. Physical exam remarkable for right ankle circumferential edema, tenderness, right anterior foot tenderness. Neurovascular status intact. Full ROM. Denies fever, body aches, chills, chest pain, shortness of breath, abdominal pain, nausea, vomiting. Differential diagnosis includes septic joint, sprain, fracture, among others Initial workup will be conducted with hematologic labs & imaging. Initial workup reviewed by me. Hematologic labs remarkable for I informally interpreted the imaging as bi mal fracture with joint space widening. See final read. Upon repeat evaluation, patient remained stable. He was placed in stirrup splint. Discussed discharge with patient, need for follow-up with orthopedics. We discussed splint care. Discussed return precautions to the ED. This is Dr. Alonso patient states that he had a significant injury where he dropped something on his foot 1 to 2 days prior to having significant pain. He has full range of motion with active and passive movement suggesting strongly against a septic joint which was an initial concern. It is circumferentially swollen. He has no fever or systemic illness. We did get some blood work inflammatory markers however his x-ray demonstrates he has a lateral malleolar fracture and medial joint space widening consistent with a bimalleolar or an unstable ankle. Stirrup splint was placed on the patient neurovascular intact after this. He has been advised to remain nonweightbearing to follow-up with Dr. Lock. Labs at this point will not regional climate change analyst as we have a diagnosis. Symptoms are not consistent with a septic joint. <Pancho Alonso MD - Last Filed: 07/14/24 12:53> Vital Signs: 07/14/24 12:06 Temperature 98.1 F Temperature Source Oral Pulse Rate [Left] 89 Respiratory Rate 14 Blood Pressure [Right Arm] 154/99 H Blood Pressure Mean [Right Arm] 117 Blood Pressure Source [Right Arm] Automatic Cuff Blood Pressure Position [Right Arm] Sitting 02 Sat by Pulse Oximetry 98 Oxygen Delivery Method Room Air Orders (Tests/Meds): ED MEDICATIONS Generic Name Dose Route Start Last Admin Trade Name Freq PRN Reason Stop Dose Admin Hydrocodone Bitart/Acetaminophen 1 tab 07/14/24 12:47 07/14/24 12:49 Hydrocodone/Apap 5/325 Mg Tablet PO 07/14/24 12:48 1 tab ONCE ONE Administration ORDERS Category Date Time Status Ankle XR -Right minimum 3 Views [XR ankle RT min 3V] Exams 07/14/24 12:15 Taken Stat CBC w/Auto Diff [Complete Blood Count Auto Diff] Stat Lab 07/14/24 12:15 Ordered CMP [Comprehensive Metabolic Panel] Stat Lab 07/14/24 12:15 Ordered CRP [C-Reactive Protein] Stat Lab 07/14/24 12:15 Ordered ESR [Erythrocyte Sedimentation Rate] Stat Lab 07/14/24 12:15 Ordered Uric Acid Stat Lab 07/14/24 12:15 Ordered Medical Decision Narrative: In summary, patient is a 33-year-old male who presents to the ED for right ankle pain. Upon initial exam, patient is alert, oriented and cooperative. Patient is hemodynamically stable. Physical exam remarkable for Differential diagnosis includes Initial workup will be conducted with hematologic labs, imaging. Initial inventions include Initial workup reviewed by me. Hematologic labs remarkable for I considered additional testing but deferred due to I informally interpreted the imaging as Upon repeat evaluation, patient had an acceptable resolution of symptoms. They were ambulatory in the ED. Able to tolerate p.o. Given this [patient is appropriate for discharge at this time will be discharged with a prescription for? The case was discussed with hospital medicine regarding management and they will admit the patient to their service for continued evaluation at this time? Etc.] This is Dr. Alonso patient states that he had a significant injury where he dropped something on his foot 1 to 2 days prior to having significant pain. He has full range of motion with active and passive movement suggesting strongly against a septic joint which was an initial concern. It is circumferentially swollen. He has no fever or systemic illness. We did get some blood work inflammatory markers however his x-ray demonstrates he has a lateral malleolar fracture and medial joint space widening consistent with a bimalleolar or an unstable ankle. Stirrup splint was placed on the patient neurovascular intact after this. He has been advised to remain nonweightbearing to follow-up with Dr. Lock. Labs at this point will not regional climate change analyst as we have a diagnosis. Symptoms are not consistent with a septic joint. Critical Care <Nicci Bran APRN - Last Filed: 07/14/24 13:00> Critical Care Time Critical Care Time: No
[2024-07-14] MEDS: HYDROCODONE/APAP 5/325 MG TABLET 1 TAB PO (12:49)
[2024-07-14 12:54] VITALS: BP 171/114; PULSE 90; RESP 19; TEMP 36.7
--- NOTE | 2024-07-15 10:45 | PC.NURSE ---
pt called to confirm his ankle was broken due to the radiology report stating no fracture, discussed with who reports that himself and agree that it is a fx and was a mis read from the radiologist, pt updated on information
== END 2024-07-14 12:54 | disposition home or self-care (01) ==
PROVIDERS: Emergency Provider Student in an Organized Health Care Education/Training Program; PCP Internal Medicine Adolescent Medicine
DX: S82.841A Displaced bimalleolar fracture of right lower leg, initial encounter for closed fracture (principal); M25.571 Pain in right ankle and joints of right foot; M79.671 Pain in right foot; X58.XXXA Exposure to other specified factors, initial encounter; Y93.89 Activity, other specified; Y92.69 Other specified industrial and construction area as the place of occurrence of the external cause
CPT/HCPCS: 73610; 99283

== ENCOUNTER 2024-09-06 10:22 | Outpatient (CLI) | payer BC, SELFPAY ==
--- NOTE | 2024-09-06 10:23 | CT_ITS ---
FINAL REPORT TECHNIQUE: Thin section axial CT images with coronal and sagittal reformats were performed. This study was performed with techniques to keep radiation doses as low as reasonably achievable (ALARA). Individualized dose reduction techniques using automated exposure control or adjustment of mA and/or kV according to the patient's size were employed. CLINICAL HISTORY: Rt Ankle pain f/u with ortho COMPARISON: None FINDINGS: CT RIGHT ANKLE: No fracture of the right ankle is identified. There is a bulky calcaneal spur present. There are calcifications in the distal Achilles tendon, that may represent chronic Achilles tendinitis or sequela of a prior tear. There are calcifications which extend into the anterior tibiofibular ligament, suggesting old ligamentous injury. There is mild degenerative change of the hindfoot. IMPRESSION: No acute osseous abnormality or evidence of healing fracture. No calcified joint body. Chronic changes involving the anterior tibiofibular ligament and the Achilles tendon. Reviewed, Interpreted and Dictated by Gladys Chase MD Transcribed by Bethanie Velasquez Authenticated and [facility]
== END 2024-09-06 23:59 | disposition home or self-care (01) ==
LOC: RAD 10:23
PROVIDERS: PCP Internal Medicine Adolescent Medicine; Visit Provider Physician Assistant Surgical
DX: M25.571 Pain in right ankle and joints of right foot (principal); S82.841A Displaced bimalleolar fracture of right lower leg, initial encounter for closed fracture
CPT/HCPCS: 73700